=== PATIENT | female | born 1950 | race Hispanic/Latino ===

== ENCOUNTER 2020-12-28 11:14 | Observation (INO) | payer MEDICARE, SELFPAY ==
[2020-12-28] VITALS (16 sets, daily range): BP systolic 124–157; BP diastolic 56–80; PULSE 61–74; RESP 15–20; TEMP 36–36.5; O2SAT 94–100; BMI 33.7
--- NOTE | ~2020-12-28 | US_ITS ---
EXAMINATION: US thyroid EXAM DATE: 12/30/2020 09:18 INDICATION: Thyroid mass. TECHNIQUE: Multiple grayscale and Doppler images of the thyroid were obtained (by a technologist who performed the scan) and subsequently reviewed. Individual nodules and recommendations may be reporte d in accordance with TI-RADS system as designated by the 2017 ACR White Paper TI-RADS committee. The re is no prior study for comparison. FINDINGS: Right thyroid lobe measures 5.5 x 1.3 x 1.3 cm, the left measuring 3.8 x 1.2 x 1.3 cm. Relatively lolis ogeneous thyroid echogenicity. There is a right thyroid lobe inferior pole nodule measuring 1.6 x 1.2 x 1.1 cm, solid (2 points), is oechoic (1 point), wider than tall, smooth well defined margin, without echogenic foci, category TR3 for this nodule. IMPRESSION: Right thyroid lobe 1.6 cm TR 3 nodule; follow-up ultrasound at 1, 3, 5 years, assuming no growth on those exams. Reviewed, dictated and finalized at location A. IMPRESSION: Right thyroid lobe 1.6 cm TR 3 nodule; follow-up ultrasound at 1, 3 , 5 years, assuming no growth on those exams.
--- NOTE | ~2020-12-28 | XR_ITS ---
EXAMINATION: XR chest 2V DATE: 12/28/2020 13:35 INDICATION: Weakness. TECHNIQUE: Frontal and lateral views of the chest were obtained. COMPARISON: None. FINDINGS: There is mild elevation of left hemidiaphragm. No pneumonia, pleural effusion, or pneumotho rax. The heart size is normal. IMPRESSION: 1. No acute cardiopulmonary disease. Reviewed, dictated and finalized at location A.
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
--- NOTE | 2020-12-28 12:15 | ECG_ITS ---
Measurements Intervals [place] Rate: 57 P: 31 GA: 154 QRS: -8 QRSD: 80 T: -23 QT: 410 QTc: 402 Interpretive Statements SINUS BRADYCARDIA LEFT VENTRICULAR HYPERTROPHY BORDERLINE ST-T WAVE ABNORMALITY- ANTEROLAT/INF LEADS BORDERLINE ECG Electronically Signed On 12-28-2020 13:13:25 CDT by Kale Tapia D.O.
[2020-12-28 13:33] LABS: Basophils Percent Auto 0.5 % (0.2-1.2); Eosinophils Absolute Auto 0.1 K/mm3 (0-0.3); Eosinophils Percent Auto 0.9 % (0-4.4); Hematocrit 40.1 % (37.0-47.0); Hemoglobin 12.6 g/dL (12.0-15.0); Immature Granulocyte Absolute 0.02 K/mm3 (0.00-0.031); Immature Granulocyte Percent A 0.2 % (0-0.5); Lymphocytes Absolute Auto 1.72 K/mm3 (0.9-3.2); Lymphocytes Percent Auto 19.4 % (18.3-44.2); Mean Corpuscular HGB Conc 31.4 g/dl (32-36); Mean Corpuscular Volume 85.9 fl (80-100); Mean Platelet Volume 9.5 fl (7.4-10.4); Monocytes Absolute Auto 0.6 K/mm3 (0.1-0.6); Monocytes Percent Auto 6.5 % (2.6-8.5); Neutrophils Absolute Auto 6.4 K/mm3 (1.3-6.7); Neutrophils Percent Auto 72.5 % (45.5-73.1); Platelet Count Result 289 k/mm3 (150-375); Red Blood Count 4.67 M/mm3 (4.2-5.4); Red Cell Distribution Width 15.9 % (11.5-14.5); White Blood Count 8.9 K/mm3 (4.5-10.0)
[2020-12-28 14:15] LABS: Add Urine Microscopic? NO; Appearance Urine Clear (Clear); Bilirubin Urine Negative (Negative); Blood Urine Negative (Negative); Color Urine Yellow (Yellow); Glucose Urine UA Negative (Negative); Ketones Urine Negative (Negative); Leukocyte Esterase Ur Negative LEU/UL (Negative); Nitrate Urine Negative (Negative); Protein Urine Negative (Negative); Specific Grav Ur 1.015 (1.001-1.035); Urobilinogen Urine Negative mg/dL (<2.0)
[2020-12-28] MEDS: LACTATED RINGERS 1,000 ML 150 ML IV CONT (14:16)
[2020-12-28 14:26] LABS: Alanine Aminotransferase 50 U/L (4-35); Albumin Level 4.6 g/dL (3.5-5.1); Alkaline Phosphatase 102 U/L (38-126); Anion Gap 12 mmol/L (8-16); Aspartate Amino Transferase 71 U/L (14-36); Bilirubin,Total 1.2 mg/dL (0.2-1.3); Blood Urea Nitrogen 16 mg/dL (7-17); Carbon Dioxide 22 mmol/L (22-30); Chloride 107 mmol/L (98-107); Estimated CRCL calculation 44 ml/min; Estimated Glomerular Filt Rate 55; Glucose 101 mg/dL (65-110); Potassium 5.8 mmol/L (3.4-5.0); Sodium 141 mmol/L (137-145)
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
[2020-12-28] MEDS: SODIUM CHLORIDE 0.9% IV 1,000 ML 999 ML IV CONT (15:42)
[2020-12-28] MEDS: FUROSEMIDE INJ 40 MG/4 ML VIAL IV PUSH ×2 (15:42→21:23)
--- NOTE | 2020-12-28 19:20 | ADMGEN ---
This patient, Alyssa Cui, was admitted to Medical Room 242-01 at 1920. Patient/family oriented to hospital policies and general routines including ID bracelet, bed and alarms, visiting hours, pain management, procedures, bathroom and other care routines, personal items, smoking policy, room service/diet, and visiting hours. Information on how to activate the Rapid Response Team has been discussed. Patient/Family are encouraged to report perceived risks to care and to ask questions if they do not understand what they are told or what they should do.
--- NOTE | 2020-12-28 19:42 | PM.IMHP ---
H&P: HPI History of Present Illness Date/Time: 12/28/20 19:42 Chief Complaint: Weakness. Narrative: This is a 70-year-old female with past medical history significant for hypertension, generalized anxiety, depression, multiple strokes, former tobacco user, patient recently relocated here to live with her daughter, from [place]. Patient has had extensive workup in the past for generalized weakness and dysphonia including thyroid masses biopsy, however it was nondiagnostic due to not enough follicular cells present, patient was supposed to have a stress test but never got around to do it due to bad weather. Patient is brought to the emergency room today after she was not able to get up from sitting position just recently she had a urinary tract infection that was treated with antibiotics in the outpatient setting according to daughter who is at bedside. Patient denies any nausea ,vomiting ,has had some diarrhea, no abdominal pain, no weight loss, has had cold intolerance, has a weak voice now for roughly 2 years, has cough with swallowing however patient just had a video fluoroscopy swallow study that did not show laryngeal or tracheal aspiration, patient denies any fevers any rigors any chills but gets very short of breath with activity at exertion however patient has maintained her saturations at 90 a 99% on a 6 minute walk test prior to coming to [place] which was part of the workup, patient denies any chest pain any PND or orthopnea no leg swelling no syncope or near syncope no focal sensorimotor deficit. Preliminary workup has been essentially nonrevealing. Review of Systems Review of Systems: Weakness unable to get up from sitting position, cold intolerance, shortness of breath. Constitutional: Constitutional: Denies chills, Reports fatigue, Denies fever(s), Denies increased appetite, Denies night sweats, Denies poor appetite, Denies stops breathing during sleep, Reports weakness and Reports weight gain Eyes: Eyes: Denies change in vision ENT: Denies dysphagia, Denies vertigo, Denies dizziness, Denies nasal congestion, Denies nasal discharge, Denies nasal obstruction and Denies odynophagia Comments: Weak voice Cardiovascular: Cardiovascular: Denies edema, Denies irregular heart rhythm, Denies leg edema, Denies lightheadedness, Denies radiating jaw, neck or arm pain, Denies palpitations, Reports dyspnea on exertion and Denies orthopnea Respiratory: Respiratory: Denies change in phlegm color, Denies chest congestion, Denies cough, Denies excessive phlegm production and Reports dyspnea on exertion Gastrointestinal: Gastrointestinal: Denies abdominal pain, Denies dyspepsia, Reports diarrhea, Denies nausea and Denies vomiting Genitourinary: Genitourinary: Denies dysuria and Denies flank pain Musculoskeletal: Musculoskeletal: Denies arthralgias, Denies joint swelling and Reports muscle weakness Integumentary/Breasts: Skin/Breast: Denies change in hair, Denies dry skin, Denies rash and Denies skin swelling Neurologic: Denies vertigo, Denies dizziness, Denies syncope, Denies focal weakness, Denies restless legs, Denies Sensory deficit (Neuro), Denies paresthesias and Denies tremor(s) Psychiatric: Psychiatric: Reports behavioral changes Endocrine: Endocrine: Reports cold intolerance and Reports fatigue Hematologic/Lymphatic: Hematologic/Lymphatic: Reports as per HPI Allergic/Immunologic: Allergic/Immunologic: Reports as per HPI [facility] Family History Family History (Updated 12/28/20 @ 20:13 by Bhumi Redd RN) Mother Cerebrovascular accident Hypertension Sibling Congestive heart failure Hypertension Social History Social History Smoking packs per day: 1 Smoking cigarettes per day: 20.0 Years smoked: 20 Smoking pack-years: 20.00 Smoking status: Former smoker Tobacco type: cigarettes Smoking end date: 12/28/93 Additional smoking assessment comments: Smoked for 2
[2020-12-28 20:09] LABS: Anion Gap 12 mmol/L (8-16); Blood Urea Nitrogen 14 mg/dL (7-17); Calcium 9.7 mg/dL (8.4-10.2); Carbon Dioxide 21 mmol/L (22-30); Chloride 110 mmol/L (98-107); Estimated CRCL calculation 49 ml/min; Estimated Glomerular Filt Rate > 60; Glucose 128 mg/dL (65-110); Potassium 4.3 mmol/L (3.4-5.0); Sodium 143 mmol/L (137-145)
[2020-12-28] MEDS: SODIUM CHLORIDE 0.9% IV 1,000 ML 125 ML IV CONT (21:22)
[2020-12-28] MEDS: GLYCOPYRROLATE 1 MG TABLET PO (23:27)
[2020-12-28] MEDS: busPIRone HCL 5 MG TABLET PO (23:27)
[2020-12-28] MEDS: predniSONE 20 MG TABLET PO (23:28)
[2020-12-28] MEDS: OXYBUTYNIN CHLORIDE 5 MG TABLET PO (23:28)
[2020-12-29] VITALS (9 sets, daily range): BP systolic 122–134; BP diastolic 64–69; PULSE 66–94; RESP 16–18; TEMP 36.4–36.6; O2SAT 97–99
[2020-12-29] MEDS: SODIUM CHLORIDE 0.9% IV 1,000 ML 125 ML IV CONT (04:52)
[2020-12-29 06:15] LABS: Anion Gap 11 mmol/L (8-16); Blood Urea Nitrogen 15 mg/dL (7-17); Calcium 9.2 mg/dL (8.4-10.2); Carbon Dioxide 23 mmol/L (22-30); Chloride 107 mmol/L (98-107); Estimated CRCL calculation 55 ml/min; Estimated Glomerular Filt Rate > 60; Glucose 146 mg/dL (65-110); Sodium 141 mmol/L (137-145)
--- NOTE | 2020-12-29 08:12 | PM.IMPN ---
Progress Note: A&P Assessment and Plan (1) General weakness: Code(s): R53.1 - Weakness Status: Acute Assessment and Plan: Patient had extensive workup done in her place of residence in [place]. Patient was supposed to have a cardiac stress test done to assess for coronary artery disease but never got around to it due to bad weather and relocation to this area she is trying to establish care with primary care physician. Patient with thyroid mass which biopsy was nondiagnostic Suspect hypothyroidism/Myasthenia gravis/Eaton-Lambert syndrome. However patient with no ophthalmoplegia but weak voice. (2) Dysphonia: Code(s): R49.0 - Dysphonia Status: Acute Assessment and Plan: Patient carries a diagnosis of a right thyroid neck mass. She underwent 3 different attempts at biopsy at [facility]. unfortunately all 3 samplings were unsatisfactory. Dysphonia could be related to compression of the recurrent laryngeal nerve by this mass. Evaluation by ENT / Head and neck surgery. Patient had video fluoroscopy swallow study which showed delay initiation of swallowing but no laryngeal penetration or tracheal aspiration Patient has been placed on a level 6 diet However patient complains of cough when swallows Hematology-Oncology consult and ENT /regular neck surgery consult. (3) Thyroid mass of unclear etiology: Code(s): E07.89 - Other specified disorders of thyroid Status: Acute Assessment and Plan: Biopsy was nondiagnostic, Mainly due to an satisfactory sampling. Consider another attempt at biopsy/ fine-needle aspiration. TSH level was normal at 2.75. (4) Encephalomalacia on imaging study: Code(s): G93.89 - Other specified disorders of brain Status: Acute Assessment and Plan: Left frontal lobe encephalomalacia Patient has had multiple recurrent strokes in the past. Continue Plavix for prophylaxis. (5) Chronic arterial ischemic stroke: Code(s): I69.30 - Unspecified sequelae of cerebral infarction Status: Acute Assessment and Plan: Continue Plavix and aspirin Not on a statin (6) Hyperkalemia: Code(s): E87.5 - Hyperkalemia Status: Acute Assessment and Plan: Suspect secondary to losartan only slightly elevated above higher normal level (7) COPD with emphysema: Code(s): J43.9 - Emphysema, unspecified Status: Acute Assessment and Plan: Stable Not on home meds. Patient previously had a pulmonary stress test. Results from October 27 2019: 6 minute walk distance is 91.44 m with maximal severe dyspnea. During exercise there was no significant desaturation while breathing room air. Blood pressure increased significantly in her rate remains stable with walking. These may represent a hypertensive response to exercise. The patient reported no pulmonary symptoms during exercise. Severe exercise impairment is likely due to desaturation and cardiovascular causes. The patient did complete the study, walking to 296 seconds of the 360 seconds test. Based upon age and body mass index, exercise capacity is less than predicted. Subjective Date/time seen: 12/29/20 08:12 S: Patient is examined at the bedside. She complains about her voice. there is no other complaint. Review of Systems Constitutional: Constitutional: Denies chills, Reports fatigue, Denies fever(s), Denies increased appetite, Denies night sweats, Denies poor appetite, Denies stops breathing during sleep, Reports weakness and Reports weight gain Eyes: Eyes: Denies change in vision ENT: Denies dysphagia, Denies vertigo, Denies dizziness, Denies nasal congestion, Denies nasal discharge, Denies nasal obstruction and Denies odynophagia Cardiovascular: Cardiovascular: Denies syncope, Denies edema, Denies irregular heart rhythm, Denies leg edema, Denies lightheadedness, Denies radiating jaw, neck or arm pain, Denies palpitations, Reports dyspnea on exertion and D
[2020-12-29] MEDS: LOSARTAN POTASSIUM 25 MG TABLET PO (08:45)
[2020-12-29] MEDS: GLYCOPYRROLATE 1 MG TABLET PO (08:45)
[2020-12-29] MEDS: ASPIRIN 325 MG TABLET PO (08:45)
[2020-12-29] MEDS: SERTRALINE HCL 50 MG TABLET PO (08:45)
[2020-12-29] MEDS: CLOPIDOGREL BISULFATE 75 MG TABLET PO (08:45)
[2020-12-29] MEDS: predniSONE 20 MG TABLET PO (08:45)
[2020-12-29] MEDS: FUROSEMIDE INJ 40 MG/4 ML VIAL IV PUSH ×2 (08:52→20:15)
[2020-12-29] MEDS: MULTIVITAMINS /C LUTEIN (CENTRUM SILVER) TABLET *BKC 1 TAB PO (11:48)
[2020-12-29] MEDS: busPIRone HCL 5 MG TABLET PO (20:15)
[2020-12-29] MEDS: OXYBUTYNIN CHLORIDE 5 MG TABLET PO (20:15)
[2020-12-30] VITALS: PULSE 81
[2020-12-30 04:00] VITALS: PULSE 69
[2020-12-30 05:11] VITALS: BP 115/61; PULSE 62; RESP 16; TEMP 36.5; O2SAT 97
[2020-12-30 07:57] LABS: Anion Gap 12 mmol/L (8-16); Blood Urea Nitrogen 20 mg/dL (7-17); Carbon Dioxide 25 mmol/L (22-30); Chloride 103 mmol/L (98-107); Estimated CRCL calculation 45 ml/min; Estimated Glomerular Filt Rate 55; Glucose 119 mg/dL (65-110); Potassium 3.4 mmol/L (3.4-5.0); Sodium 140 mmol/L (137-145)
[2020-12-30 08:00] VITALS: PULSE 82
[2020-12-30 08:09] LABS: Basophils Percent Auto 0.3 % (0.2-1.2); Eosinophils Absolute Auto 0.1 K/mm3 (0-0.3); Eosinophils Percent Auto 0.9 % (0-4.4); Hematocrit 38.9 % (37.0-47.0); Hemoglobin 12.6 g/dL (12.0-15.0); Immature Granulocyte Absolute 0.02 K/mm3 (0.00-0.031); Immature Granulocyte Percent A 0.2 % (0-0.5); Lymphocytes Absolute Auto 3.81 K/mm3 (0.9-3.2); Lymphocytes Percent Auto 41.7 % (18.3-44.2); Mean Corpuscular HGB Conc 32.4 g/dl (32-36); Mean Corpuscular Hemoglobin 27.3 pg (26-34); Mean Corpuscular Volume 84.2 fl (80-100); Monocytes Absolute Auto 0.7 K/mm3 (0.1-0.6); Monocytes Percent Auto 7.9 % (2.6-8.5); Neutrophils Absolute Auto 4.5 K/mm3 (1.3-6.7); Platelet Count Result 275 k/mm3 (150-375); Red Blood Count 4.62 M/mm3 (4.2-5.4); Red Cell Distribution Width 15.5 % (11.5-14.5); White Blood Count 9.1 K/mm3 (4.5-10.0)
[2020-12-30] MEDS: CLOPIDOGREL BISULFATE 75 MG TABLET PO (09:01)
[2020-12-30] MEDS: LOSARTAN POTASSIUM 25 MG TABLET PO (09:01)
[2020-12-30] MEDS: MULTIVITAMINS /C LUTEIN (CENTRUM SILVER) TABLET *BKC 1 TAB PO (09:01)
[2020-12-30] MEDS: SERTRALINE HCL 50 MG TABLET PO (09:01)
[2020-12-30] MEDS: ASPIRIN 325 MG TABLET PO (09:01)
[2020-12-30] MEDS: predniSONE 20 MG TABLET PO (09:02)
[2020-12-30] MEDS: FUROSEMIDE INJ 40 MG/4 ML VIAL IV PUSH (09:02)
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
[2020-12-30] MEDS: MECLIZINE HCL 6.25 MG TABLET PO (11:44)
[2020-12-30 12:00] VITALS: PULSE 64
--- NOTE | 2020-12-30 13:17 | PM.DS ---
DS: Admitting Diagnosis Discharge Date 12/30/2020. Admitting Diagnosis weakness dysphonia DS: Discharge Diagnosis Discharge Diagnosis (1) Dizziness: Code(s): R42 - Dizziness and giddiness Status: Acute Assessment and Plan: We are starting the patient on meclizine as needed. (2) COPD with emphysema: Code(s): J43.9 - Emphysema, unspecified Status: Acute Assessment and Plan: Stable Not on home meds. Patient previously had a pulmonary stress test. Results from October 27 2019: 6 minute walk distance is 91.44 m with maximal severe dyspnea. During exercise there was no significant desaturation while breathing room air. Blood pressure increased significantly in her rate remains stable with walking. These may represent a hypertensive response to exercise. The patient reported no pulmonary symptoms during exercise. Severe exercise impairment is likely due to desaturation and cardiovascular causes. The patient did complete the study, walking to 296 seconds of the 360 seconds test. Based upon age and body mass index, exercise capacity is less than predicted. Pulmonary follow-up as an outpatient. Repeat physical therapy as an outpatient. (3) Thyroid mass of unclear etiology: Code(s): E07.89 - Other specified disorders of thyroid Status: Acute Assessment and Plan: Biopsy was nondiagnostic, Mainly due to an satisfactory sampling. Consider another attempt at biopsy/ fine-needle aspiration. TSH level was normal at 2.75. (4) Encephalomalacia on imaging study: Code(s): G93.89 - Other specified disorders of brain Status: Acute Assessment and Plan: Left frontal lobe encephalomalacia Patient has had multiple recurrent strokes in the past. Continue Plavix for prophylaxis. (5) Chronic arterial ischemic stroke: Code(s): I69.30 - Unspecified sequelae of cerebral infarction Status: Acute Assessment and Plan: Continue Plavix and aspirin Not on a statin (6) Dysphonia: Code(s): R49.0 - Dysphonia Status: Acute Assessment and Plan: Patient carries a diagnosis of a right thyroid neck mass. She underwent 3 different attempts at biopsy at [facility]. unfortunately all 3 samplings were unsatisfactory. Dysphonia could be related to compression of the recurrent laryngeal nerve by this mass. Evaluation by ENT / Head and neck surgery. Patient had video fluoroscopy swallow study which showed delay initiation of swallowing but no laryngeal penetration or tracheal aspiration Patient has been placed on a level 6 diet However patient complains of cough when swallows Hematology-Oncology consult and ENT /regular neck surgery consult. (7) General weakness: Code(s): R53.1 - Weakness Status: Acute Assessment and Plan: Patient had extensive workup done at her former place of residence in [place]. Patient was supposed to have a cardiac stress test done to assess for coronary artery disease but never got around to it due to bad weather and relocation to this area she is trying to establish care with primary care physician. Patient with thyroid mass which biopsy was nondiagnostic. Thyroid ultrasound performed today reveals right thyroid lobe inferior pole nodule measuring 1.6 x 1.2 x 1.1 cm, solid (2 points), isoechoic (1 point), wider than tall, smooth well defined margin, without echogenic foci, category TR3 for this nodule. Follow-up with Head and neck surgery as an outpatient. (8) Hyperkalemia: Onset Date: ~11/2020 Code(s): E87.5 - Hyperkalemia Status: Acute Assessment and Plan: Suspect secondary to losartan only slightly elevated above higher normal level. Completely resolved with a potassium of 3.4. (9) Paresthesia: Code(s): R20.2 - Paresthesia of skin Status: Acute DS: Summary Hospital Course Reason for hospitalization: weakness Hospital Course: Narrative: This is a 70-year-old
--- NOTE | 2021-01-18 16:04 | P.CONONC_ITS ---
HPI - Date of Consult Date/Time: 01/18/21 16:04 Requesting Physician: Yojana Raphael MD Primary Care Provider: PHYSICIAN NOT ON STAFF - Consult Narrative Reason for consult: Thyroid mass Narrative: Alyssa Cui is a 70 year old female Patient was discharged before consultation. Review of Systems - Neurologic Reports abnormal speech (No volume), Reports behavioral changes, Reports weakness, Denies vertigo, Denies syncope, Denies headache(s), Denies focal weakness, Denies numbness, Denies restless legs, Denies sensory deficit, Denies paresthesias, Denies tremor(s) [facility] Family History: Family History (Last Updated 12/28/20 @ 20:13 by Bhumi Redd RN) Mother Cerebrovascular accident Hypertension Sibling Congestive heart failure Hypertension - Social History Social History: Social History (Last Reviewed 12/28/20 @ 14:48 by Shady Zamudio MD) Alcohol Use: Alcohol intake: never Substance Use: Substance use: never Substance use type: does not use Others: Spiritual care concerns: No Smoking Status: Smoking status: Former smoker Tobacco type: cigarettes Smoking end date: 12/28/93 Smoking Pack-years: Smoking packs per day: 1 Smoking cigarettes per day: 20.0 Years smoked: 20 Smoking pack-years: 20.00 Comments: Additional smoking assessment comments: Smoked for 20 years Meds Home Medications Medication Instructions Recorded Confirmed Type Adults Multivitamin 1 tablet PO DAILY 12/28/20 12/28/20 History aspirin 325 mg PO DAILY 12/28/20 12/28/20 History buspirone 5 mg PO HS 12/28/20 12/28/20 History clopidogrel 75 mg PO DAILY 12/28/20 12/28/20 History losartan 25 mg PO DAILY 12/28/20 12/28/20 History oxybutynin chloride 5 mg PO HS 12/28/20 12/28/20 History sertraline 50 mg PO DAILY 12/28/20 12/28/20 History acetaminophen [Tylenol] 325 mg PO Q6H PRN #30 cap 12/30/20 Rx meclizine 25 mg PO BID PRN #30 tablet 12/30/20 Rx Allergies Allergy/AdvReac Type Severity Reaction Status Date / Time codeine Allergy Unknown Verified 12/28/20 11:34 morphine Allergy Unknown Verified 12/28/20 11:34 Results - Labs CBC & Chem 7: 12/30/20 07:37 12/30/20 07:37 Assessment and Plan - Additional Plan Patient was discharged before consultation.
== END 2020-12-30 13:45 | disposition home or self-care (01) ==
LOC: ANHED 16:55 → ANH2MED 17:57
PROVIDERS: Physician Assistant; Admitting Provider Family Medicine; Emergency Provider Emergency Medicine; Visit Provider Internal Medicine
DX: R53.1 Weakness (principal); R42 Dizziness and giddiness; R49.0 Dysphonia; J43.9 Emphysema, unspecified; E87.5 Hyperkalemia; E07.89 Other specified disorders of thyroid; G93.89 Other specified disorders of brain; I10 Essential (primary) hypertension; F41.8 Other specified anxiety disorders; Z86.73 Personal history of transient ischemic attack (TIA), and cerebral infarction without residual deficits; Z87.891 Personal history of nicotine dependence; Z79.02 Long term (current) use of antithrombotics/antiplatelets; Z79.82 Long term (current) use of aspirin; R20.2 Paresthesia of skin
CPT/HCPCS: 36415; 51701; 70450; 71046; 76536; 80048; 80053; 81003; 84443; 85025; 86850; 86900; 86901; 93005; 96361; 96374; 96376; 99285; A9270; G0378; J1940; J7030; J7120; J7512

== ENCOUNTER 2021-04-10 08:23 | Outpatient (CLI) | payer MEDICARE, SELFPAY ==
--- NOTE | ~2021-04-10 | NM_ITS ---
EXAMINATION: NM kareem stress w perfusion DATE: 04/10/2021 12:31 INDICATION: Shortness of breath TECHNIQUE: Rest images were obtained following intravenous administration of 10.5 mCi Tc99m tetrofosm in (Myoview). The patient was infused intravenously with Lexiscan (Regadenoson). Then, 30 mCi Tc99m t etrofosmin (Myoview) was administered intravenously, and stress images were obtained. Data was recons tructed into short axis and horizontal and vertical long axis SPECT images. Gated SPECT images were a lso obtained. COMPARISON: None. FINDINGS: There is no definite reversible or fixed perfusion abnormality to suggest ischemia or infar ction. There is normal left ventricular chamber size, wall motion and ejection fraction. Left ventr icular ejection fraction measures >70%. IMPRESSION: 1. Normal myocardial perfusion at rest and during stress. 2. Left ventricular ejection fraction measuring >70%. Reviewed, dictated and finalized at location A. [employer]ER
--- NOTE | 2021-04-10 09:16 | EST_ITS ---
Patient Info Name: Alyssa Cui Age: 70 years : 1950 Gender: Female Ht: 62 in Wt: 165 lbs BSA: 1.84 m2 HR: 66 bpm BP: 132 / 77 mmHg Heart Rhythm: Sinus Rhythm Exam Date: 04/10/2021 10:39 AM Exam Location: [facility] Stress Patient Status: Outpatient Admit Date: 04/10/2021 Staff Ordering Physician: Zenaida Oden MD Attending Provider: Zenaida Oden MD Exercise Technologist: Ramona Sims CT Exercise Physician: Kale Tapia DO Exam Type: CA stress kareem w NM Study Info Indications R06.02 - Shortness of breath A regadenoson stress test was performed. Summary 1. 1. Negative lexiscan stress test for ischemic ST changes by ECG criteria. 2. 2. Stable hemodynamics throughout the test. 3. 3. Nuclear scan to follow and will be reported separately. Please correlate with it. 4. 4. Patient informed of the above results. Protocol: Lexiscan Stress ECG Details Stage: REST Duration (min): 1 min : 36 sec HR (bpm): 65 SBP (mmHg): 132 DBP (mmHg): 77 Stage: REST Duration (min): 7 min : 53 sec HR (bpm): 64 SBP (mmHg): 132 DBP (mmHg): 77 Stage: STAGE 1 Duration (min): 0 min : 59 sec HR (bpm): 86 SBP (mmHg): 133 DBP (mmHg): 75 Stage: RECOVERY Duration (min): 1 min : 0 sec HR (bpm): 89 SBP (mmHg): 133 DBP (mmHg): 75 Stage: RECOVERY Duration (min): 2 min : 0 sec HR (bpm): 83 SBP (mmHg): 133 DBP (mmHg): 75 Stage: RECOVERY Duration (min): 3 min : 0 sec HR (bpm): 80 SBP (mmHg): 123 DBP (mmHg): 70 Rest HR: 64 bpm Peak HR: 90 bpm Rest Sys BP: 132 mmHg Peak Sys BP: 133 mmHg Max Pred HR: 150 bpm % Max Pred HR: 60 % Target HR: 128 bpm Max RPP: 11,970 bpm*mmHg Termination Reason: Completed protocol Cardiac Symptoms: None Total Time: 1 min : 0 sec Rest Dey BP: 77 mmHg Peak Dey BP: 75 mmHg Total Dose: 0.4 mg Resting ECG Sinus rhythm, borderline T wave abnormality in anterolat/inf leads. Stress ECG No ST changes. Arrhythmias None. Report Signatures
== END 2021-04-10 08:24 | disposition home or self-care (01) ==
PROVIDERS: PCP Family Medicine; Visit Provider Family Medicine
DX: R06.02 Shortness of breath (principal)
CPT/HCPCS: 78452; 93017; A9502; J2785

== ENCOUNTER 2021-05-31 08:01 | Outpatient (CLI) | payer MEDICARE, SELFPAY ==
--- NOTE | 2021-05-31 10:01 | PCRCNOTE ---
PT CAME IN FOR PULMONARY FUNCTION TEST BUT WAS UNABLE TO PERFORM TEST. WE WERE UNABLE TO GET AND ACCEPTABLE AND REPRODUCIBLE RESULTS. DR. HILLIARD'S OFFICE NOTIFIED.
== END 2021-05-31 08:02 | disposition home or self-care (01) ==
PROVIDERS: PCP Family Medicine; Visit Provider Family Medicine
DX: R06.02 Shortness of breath (principal); Z53.9 Procedure and treatment not carried out, unspecified reason
CPT/HCPCS: 99199

== ENCOUNTER 2021-08-22 10:08 | Outpatient (CLI) | payer MEDICARE, SELFPAY ==
--- NOTE | ~2021-08-22 | CT_ITS ---
EXAMINATION: CT diagnostic chest wo con DATE: 08/22/2021 11:26 INDICATION: Chest pain and shortness of breath TECHNIQUE: Computed tomography (CT) of the chest was performed without intravenous contrast. The dose -length product (DLP) was 76.73 mGy-cm. Automated exposure control and iterative reconstruction techn ique were employed. COMPARISON: None FINDINGS: There is a 3 mm nodule in the right middle lobe. There is mild atelectasis in the right mid dle lobe, lingula, and the lower lobes. No pleural effusion or pneumothorax. No pathologically enlarg ed thoracic lymph nodes are identified. The heart size is normal. There is mild thoracic spondylosis. IMPRESSION: 1. No CT correlate for the patient's symptoms. 2. 3 mm nodule of the right middle lobe. If the patient has no risk factors for malignancy, no furthe r follow up is required. If there are risk factors for malignancy (i.e., history of smoking, asbesto s or radiation exposure), consider followup CT in 12 months. Reviewed, dictated and finalized at location F. IMPRESSION: 1. No CT correlate for the patient's symptoms. 2. 3 mm nodule of the right middle lobe. If the patient has no risk factors for malignancy, no further follow up is required. If there are risk factors for m alignancy (i.e., history of smoking, asbestos or radiation exposure), consider followup CT in 12 months.
--- NOTE | 2021-08-22 10:29 | ECHO_ITS ---
Patient Info Name: Alyssa Cui Age: 70 years : 1950 Gender: Female Ht: 64 in Wt: 240 lbs BSA: 2.27 m2 HR: 73 bpm BP: 125 / 74 mmHg Technical Quality: Good Exam Date: 08/22/2021 10:46 AM Exam Location: [facility] Patient Status: Outpatient Admit Date: 08/22/2021 Staff Ordering Physician: Baldo Leong APRN Fabrication Inspector: Nevin Rosales RDCS Attending Provider: Baldo Leong APRN Referring Physician: Salo VELIZ; Exam Type: CA echo doppler color flow Study Info Indications R06.02 - Shortness of breath Complete two-dimensional, color flow and Doppler transthoracic echocardiogram is performed. Summary 1. Complete two-dimensional, color flow and Doppler transthoracic echocardiogram is performed. 2. Left ventricular chamber dimension is normal. 3. Left ventricular systolic function is normal, estimated at 60-65%. 4. There is mildly increased left ventricular wall thickness. 5. The left ventricular diastolic function is grade I diastolic dysfunction. 6. E/e' 11 is mildly elevated. 7. Global longitudinal strain is normal at -17.5%. 8. Left atrial chamber dimension is mildly enlarged. 9. There is mild aortic valve sclerosis. 10. There is mild mitral valve regurgitation. 11. No pulmonary hypertension, estimated pulmonary arterial systolic pressure is 33 mmHg. 12. There is trace pulmonic regurgitation. 13. There is trivial pericardial effusion. Left Ventricle E/e' 11 is mildly elevated. Global longitudinal strain is normal at -17.5%. Left ventricular chamber dimension is normal. Left ventricular systolic function is normal, estimated at 60-65%. There is mildly increased left ventricular wall thickness. The left ventricular diastolic function is grade I diastolic dysfunction. Right Ventricle Right ventricular chamber dimension is normal. Right ventricular systolic function is normal. Left Atria Left atrial chamber dimension is mildly enlarged. Right Atria Right atrial chamber dimension is normal. Aortic Valve The aortic valve is trileaflet. There is mild aortic valve sclerosis. There is no aortic valve stenosis. There is no aortic valve regurgitation. Pulmonic Valve There is trace pulmonic regurgitation. Mitral Valve There is no mitral valve stenosis. There is mild mitral valve regurgitation. Tricuspid Valve There is no tricuspid valve regurgitation. No pulmonary hypertension, estimated pulmonary arterial systolic pressure is 33 mmHg. Pericardium/Pleural There is trivial pericardial effusion. Inferior Vena Cava Normal inferior vena cava with >50% collapse upon inspiration consistent with normal right atrial pressure, 5 mmHg. Aorta The aortic root size at the sinus of Valsalva is normal. Left Ventricular Outflow Tract Name Value Normal LVOT 2D LVOT Diameter 1.9 cm LVOT Doppler LVOT Peak Gradient 5 mmHg LVOT Mean Gradient 3 mmHg LVOT VTI 24 cm LVOT VTI/AV VTI Ratio 0.8 LVOT Stroke Volume 69 ml
== END 2021-08-22 10:09 | disposition home or self-care (01) ==
LOC: ANHCARD 10:15
PROVIDERS: Visit Provider Nurse Practitioner Family
DX: R06.02 Shortness of breath (principal); R91.1 Solitary pulmonary nodule; I35.8 Other nonrheumatic aortic valve disorders; I34.0 Nonrheumatic mitral (valve) insufficiency
CPT/HCPCS: 71250; 93306

== ENCOUNTER 2021-09-23 14:32 | Outpatient (CLI) | payer MEDICARE, SELFPAY ==
--- NOTE | 2021-09-23 15:06 | PCRCNOTE ---
PT UNABLE TO COMPLETE MIP/MEP TESTING. AFTER A THREE ATTEMPTS, PT APPEARED TO BECOME SOB, WITH ANXIETY. SHE STOOD UP WHILE ATTEMPTING TO TEST, TACHYPNEIC AND ANXIOUS. TESTING WAS STOPPED. SON WAS WITH HER.
== END 2021-09-23 14:33 | disposition home or self-care (01) ==
PROVIDERS: PCP Family Medicine; Visit Provider Internal Medicine Pulmonary Disease
DX: R06.02 Shortness of breath (principal)
CPT/HCPCS: 99199

== ENCOUNTER 2021-11-19 13:26 | Inpatient (IN) | payer MEDICARE, SELFPAY ==
[2021-11-19] VITALS (11 sets, daily range): BP systolic 127–156; BP diastolic 64–80; PULSE 59–69; RESP 12–22; TEMP 35.7–36.8; O2SAT 95–100; BMI 33.3
--- NOTE | ~2021-11-19 | CT_ITS ---
EXAMINATION: CT brain wo con DATE: 11/19/2021 13:37 INDICATION: Right facial numbness, expressive aphasia TECHNIQUE: Computed tomography (CT) of the head was performed without intravenous contrast. The mA wa s adjusted according to patient size. Iterative reconstruction technique was employed. Exam dose: 60 5.33 mGy-cm total exam DLP. COMPARISON: 12/28/2020 CT brain FINDINGS: Chronic infarcts are noted in the left frontal and left parietal areas, stable since 2020. There is cerebral atherosclerosis nonspecific diminished attenuation of the cerebral white matter, li casper due to chronic small vessel ischemic changes. No intracranial mass lesion or hemorrhage or recent cerebrovascular accident is detected. No midline shift or mass effect. No subdural or epidural hematoma is detected. No fracture or bone destruction of the cranial vault. Included paranasal sinuses and mastoid air cell s are unremarkable. IMPRESSION: Old left frontal and parietal cerebrovascular accidents Cerebral atherosclerosis and chronic small vessel ischemic changes of the cerebral white matter No acute intracranial finding Reviewed, dictated and finalized at Location A. Reviewed, dictated and finalized at location B. IMPRESSION: Old left frontal and parietal cerebrovascular accidents Cerebral atherosclerosis and chronic small vessel ischemic changes of the cereb ral white matter No acute intracranial finding
--- NOTE | ~2021-11-19 | MR_ITS ---
EXAMINATION: MR brain/brain stem wo/w con DATE: 11/20/2021 08:03 INDICATION: Acute cerebrovascular accident. Right upper extremity numbness. TECHNIQUE: Magnetic resonance imaging (MRI) of the brain and brainstem was performed without and with 16 mL MultiHance intravenous contrast. COMPARISON: Head CT 11/19/2021 FINDINGS: There is no intracranial hemorrhage, acute infarction, or abnormal intracranial mass lesion . There are old infarcts in the cerebellum bilaterally. There is an old infarct in left parietal lobe . There is an old infarct in left frontal lobe. There are scattered areas of nonspecific increased T2 -weighted signal intensity in the cerebral white matter. The ventricles are normal in size. There are likely changes of ocular lens replacement surgeries. The paranasal sinuses are clear. The mastoid ai r cells are normal. IMPRESSION: 1. Old infarcts involving the cerebellum, left parietal lobe, and left frontal lobe. 2. Mild nonspecific cerebral white matter disease, which likely represents chronic small vessel ische jeremy disease. Reviewed, dictated and finalized at location A. IMPRESSION: 1. Old infarcts involving the cerebellum, left parietal lobe, and left frontal lobe. 2. Mild nonspecific cerebral white matter disease, which likely represents hogshead roller bre small vessel ischemic disease.
--- NOTE | ~2021-11-19 | XR_ITS ---
XR chest 1V portable 11/20/2021 12:21 Indication: Cough. Crackles left lung base. Procedure: AP portable chest Comparison: 11/19/2021 Findings: Left basilar infiltrates. Mildly elevated left diaphragm. Heart size normal. Right lung jeronimo ar. No pleural effusion or pneumothorax. No acute osseous abnormality. Impression: 1: Left basilar infiltrates may represent atelectasis or pneumonia. Reviewed, dictated and finalized at location A. Impression: 1: Left basilar infiltrates may represent atelectasis or pneumonia.
--- NOTE | ~2021-11-19 | XR_ITS ---
XR chest 1V portable 11/19/2021 14:06 Indication: CVA. Procedure: AP portable chest Comparison: 12/28/2020 Findings: Heart size normal. There is atherosclerosis and mild ectasia of aorta. No focal air space d isease, pulmonary edema, pleural effusion or suspected pneumothorax. Impression: 1: No acute cardiopulmonary disease. Reviewed, dictated and finalized at location A. Impression: 1: No acute cardiopulmonary disease.
--- NOTE | 2021-11-19 13:29 | ECG_ITS ---
Measurements Intervals [place] Rate: 66 P: 16 WA: 162 QRS: 67 QRSD: 81 T: 73 QT: 397 QTc: 418 Interpretive Statements SINUS RHYTHM NONSPECIFIC T-WAVE ABNORMALITY- ANTEROLAT/HIGH LAT LEADS BORDERLINE ECG COMPARED TO ECG 12/28/2020 13:11:49 HEART RATE HAS INCREASED Electronically Signed On 11-19-2021 14:22:55 CDT by Kale Tapia D.O.
[2021-11-19 13:56] LABS: Glucose Point of Care 103 mg/dl (65-105)
--- NOTE | 2021-11-19 14:03 | ED.NEUROSD ---
HPI - Neuro Symptoms/Deficit General Chief Complaint: Suspected CVA Stated Complaint: facial numbness Time Seen by Provider: 11/19/21 13:43 Source: patient and family Limitations: no limitations History of Present Illness HPI Narrative: 71 years old female brought to the emergency room by her son-in-law was telling me that patient started having numbness probably around 1030 this morning. And have trouble to move her right upper extremity. Patient have history of stroke with difficulty speaking and dementia. At home she uses a walker to manage her walking. The numbness of the right upper extremity may be a started at 1030 or probably a little bit before. Patient chronically unable to talk, whispering, difficult to understand and difficult to communicate. I saw the patient at 1:45 PM today currently patient on aspirin and Plavix and a lot of anxiety medication. History of headache over 1-1/2-month ago, recently started on antistress antianxiety medication. Currently complaining of headache which is probably worsened than before. The family denied that the patient have any fever, chills, nausea, vomiting, diarrhea, urinary symptoms, chest pain or shortness of breath. Related Data Home Medications Medication Instructions Recorded Confirmed multivit with minerals-iron 18 1 tablet PO DAILY 12/28/20 07/24/21 mg-folic ac 400 mcg-vit K 25 mcg tablet (Adults Multivitamin) sertraline 50 mg tablet 50 mg PO DAILY 12/28/20 07/24/21 clopidogrel 75 mg tablet 75 mg PO DAILY 03/07/21 07/24/21 losartan 25 mg tablet 25 mg PO DAILY 03/07/21 07/24/21 Allergies Allergy/AdvReac Type Severity Reaction Status Date / Time codeine Allergy Unknown Verified 11/19/21 14:00 morphine Allergy Unknown Verified 11/19/21 14:00 Review of Systems Review of Systems: All systems reviewed & are unremarkable except as noted in HPI and below PMFSH Past Medical History Medical History Allergies Chronic arterial ischemic stroke Dizziness Encephalomalacia on imaging study Headache Over 65 years old Stroke Family History Family History Mother Cerebrovascular accident Hypertension Sibling Congestive heart failure Hypertension Social History Social History Smoking packs per day: 1 Smoking cigarettes per day: 20.0 Years smoked: 20 Smoking pack-years: 20.00 Smoking status: Former smoker Tobacco type: cigarettes Second hand tobacco smoke exposure: Yes Smoking end date: 12/28/93 Additional smoking assessment comments: Smoked for 20 years Alcohol intake: current Alcohol use details: Socially Substance use: never Substance use type: does not use Spiritual care concerns: No Exam Narrative: General appearance: Well-developed, well-nourished Skin: Normal color Head: Normocephalic, nontraumatic Eyes: Clear conjunctiva ENT: Oropharynx normal, ears normal, nose normal Neck: Supple, nontender Chest and respiratory: Airway patent, no respiratory distress, no accessory muscle use Heart: Regular rate/rhythm Abdomen: Soft, nontender, no organomegaly, quiet bowel sounds Vascular: Normal peripheral pulses, normal capillary refill. Musculoskeletal: Unable to move right upper extremity and the right lower extremity Neurologic: Alert oriented to her name only Course Course Emergency Course: Patient is alert, oriented to her name only, told her son-in-law that she had numbness of the right upper extremity around 1030 this morning, the patient is not clear if the symptoms started at that time
[2021-11-19 14:09] LABS: Basophils Percent Auto 0.6 % (0.2-1.2); Eosinophils Absolute Auto 0.2 K/mm3 (0-0.3); Eosinophils Percent Auto 2.9 % (0-4.4); Hematocrit 39.1 % (37.0-47.0); Hemoglobin 12.7 g/dL (12.0-15.0); Immature Granulocyte Absolute 0.02 K/mm3 (0.00-0.031); Immature Granulocyte Percent A 0.3 % (0-0.5); Lymphocytes Absolute Auto 3.16 K/mm3 (0.9-3.2); Lymphocytes Percent Auto 44.3 % (18.3-44.2); Mean Corpuscular HGB Conc 32.5 g/dl (32-36); Mean Corpuscular Hemoglobin 27.3 pg (26-34); Mean Corpuscular Volume 83.9 fl (80-100); Monocytes Absolute Auto 0.7 K/mm3 (0.1-0.6); Monocytes Percent Auto 9.4 % (2.6-8.5); Neutrophils Percent Auto 42.5 % (45.5-73.1); Platelet Count Result 253 k/mm3 (150-375); Red Blood Count 4.66 M/mm3 (4.2-5.4); Red Cell Distribution Width 15.6 % (11.5-14.5); White Blood Count 7.1 K/mm3 (4.5-10.0)
[2021-11-19 14:18] LABS: Alanine Aminotransferase 107 U/L (6-35); Albumin Level 4.4 g/dL (3.5-5.1); Alkaline Phosphatase 101 U/L (38-126); Anion Gap 11 mmol/L (8-16); Aspartate Amino Transferase 97 U/L (14-36); Blood Urea Nitrogen 17 mg/dL (7-17); Calcium 9.6 mg/dL (8.4-10.2); Carbon Dioxide 21 mmol/L (22-30); Chloride 107 mmol/L (98-107); Estimated CRCL calculation 52 ml/min; Estimated Glomerular Filt Rate > 60; Glucose 99 mg/dL (65-110); Potassium 3.9 mmol/L (3.4-5.0); Sodium 139 mmol/L (137-145)
[2021-11-19 14:30] LABS: Troponin I < 0.012 ng/mL (0.000-0.034)
[2021-11-19 14:38] LABS: INR 1.1; Prothrombin Time 13.5 Seconds (11.1-14.7)
[2021-11-19 14:39] LABS: Partial Thromboplastin Time 27.3 SECONDS (22.3-36.8)
[2021-11-19 15:24] LABS: SARS-CoV-2 RNA PCR Negative
[2021-11-19] MEDS: MORPHINE SULFATE (*CRX) 4 MG/ML INJ IV PUSH (17:34)
[2021-11-19] MEDS: ONDANSETRON INJ 4 MG/2 ML VIAL 8 MG IV PUSH (17:34)
--- NOTE | 2021-11-19 17:47 | PC.NURSE ---
This patient, Alyssa Cui, was admitted to Medical Room 248-. Patient/family oriented to hospital policies and general routines including ID bracelet, bed and alarms, visiting hours, pain management, procedures, bathroom and other care routines, personal items, smoking policy, room service/diet, and visiting hours. Information on how to activate the Rapid Response Team has been discussed. Patient/Family are encouraged to report perceived risks to care and to ask questions if they do not understand what they are told or what they should do.
--- NOTE | 2021-11-19 20:00 | PM.IMHP ---
H&P: HPI History of Present Illness Date/Time: 11/19/21 20:00 Chief Complaint: Possible stroke. Narrative: This is a pleasant 71-year-old female with history of stroke, vascular dementia, and hypertension who presented to the emergency department from home for evaluation of possible stroke. The patient can provide some history however she is not the best historian given underlying dementia and thus some of the following history is provided by her family members. She does freely talk and interact with me however she speaks only in a whisper and 1 has to listen intently to hear what she is saying. She was reportedly in her usual state of health when she awoke this morning. At about 10:30 she ?felt off? with paresthesias and weakness in her right upper extremity. She was also complaining of a posterior headache at that time. Family members were concerned that she was perhaps having another stroke and she was brought in for evaluation. Her symptoms have since resolved and she reports being back to her usual state of health. CT of the brain did not show any acute findings. Due to her history I was asked to admit her overnight for further evaluation and brain MRI. At the time my evaluation she has no complaints and she is resting comfortably. She denies vertigo, focal weakness, paresthesias, weakness, visual changes, and dysphagia. Review of Systems Review of Systems: Twelve systems were reviewed. She denies falls. No syncope or near syncope. No recent cold or flu symptoms. She denies chest pain shortness a breath. She denies dysphagia. No nausea or vomiting. She has had some loose stools. No diarrhea. Except as documented, all other systems were reviewed and are negative. REPLACED BY [facility] Past Medical History Medical History (Updated 11/19/21 @ 19:46 by Cami Retana PA-C) Anxiety and depression Cerebrovascular accident Dysphonia Chronic, ongoing finding for years. Encephalomalacia on imaging study Hypertension Hypothyroidism Vascular dementia Surgical History Surgical History (Updated 11/19/21 @ 23:39 by Cami Retana PA-C) No history of previous surgery Family History Family History Mother Cerebrovascular accident Hypertension Sibling Congestive heart failure Hypertension Social History Social History (Updated 11/19/21 @ 23:40 by Cami Retana PA-C) Social History: Healthcare power of criminal attorney: Penelope Larson, daughter. Code status: Do not resuscitate. Smoking packs per day: 1 Smoking cigarettes per day: 20.0 Years smoked: 20 Smoking pack-years: 20.00 Smoking status: Former smoker Tobacco type: cigarettes Second hand tobacco smoke exposure: Yes Smoking end date: 12/28/93 Alcohol intake: former Alcohol use details: Drank socially. Substance use: never Substance use type: does not use Additional living arrangements comments: The patient lives with her family in [place]. She is originally from [facility]. Spiritual care concerns: No Meds Home Medications and Allergies Home Medications Medication Instructions Recorded Confirmed Type multivit with minerals-iron 18 1 tablet PO DAILY 12/28/20 11/19/21 History mg-folic ac 400 mcg-vit K 25 mcg tablet (Adults Multivitamin) sertraline 50 mg tablet 50 mg PO DAILY 12/28/20 11/19/21 History clopidogrel 75 mg tablet 75 mg PO DAILY 03/07/21 11/19/21 History losartan 25 mg tablet 25 mg PO DAILY 03/07/21 11/19/21 History cholecalciferol (vitamin D3) 1,250 1,250 mcg PO WEEKLY #12 caps 08/07/21 11/19/21 Rx mcg (50,000 unit) capsule levothyroxine 50 mcg tablet 50 mcg PO DAILY #90 tabs 08/07/21 11/19/21 Rx oxybutynin chloride 10 mg 10 mg PO .q hs #90 tabs 10/09/21 11/19/21 Rx tablet,extended release 24 hr buspirone 5 mg tablet See Rx Instructions .Route 10/24/21 11/19/21 Rx .COMPLEX #180 tabs Allergies Allergy/AdvReac Type Severity Reaction Status Date
[2021-11-19 20:06] LABS: Ammonia 10 umol/L (9-30)
[2021-11-19 21:30] LABS: Hepatitis B Surface Antigen Negative (Negative)
[2021-11-19 21:35] LABS: HAV RESULT Negative (Negative); Hepatitis B Core IgM Result Negative (Negative)
[2021-11-19 21:47] LABS: Hepatitis C Virus Antibody Negative (Negative)
[2021-11-20] VITALS: BP 121/70; PULSE 62; PULSE 65; RESP 18; TEMP 35.9; O2SAT 98
[2021-11-20 03:32] VITALS: BP 123/69; PULSE 63; RESP 18; TEMP 35.8; O2SAT 98
[2021-11-20 04:00] VITALS: PULSE 61
[2021-11-20 06:05] LABS: Alanine Aminotransferase 92 U/L (6-35); Albumin Level 3.5 g/dL (3.5-5.1); Alkaline Phosphatase 87 U/L (38-126); Anion Gap 10 mmol/L (8-16); Aspartate Amino Transferase 73 U/L (14-36); Bilirubin,Total 0.7 mg/dL (0.2-1.3); Blood Urea Nitrogen 17 mg/dL (7-17); Calcium 8.7 mg/dL (8.4-10.2); Carbon Dioxide 23 mmol/L (22-30); Chloride 106 mmol/L (98-107); Cholesterol 178 mg/dL (0-200); Estimated CRCL calculation 49 ml/min; Estimated Glomerular Filt Rate > 60; Glucose 96 mg/dL (65-110); HDL Direct 49 mg/dL; Sodium 139 mmol/L (137-145); Triglycerides 115 mg/dL (<150)
[2021-11-20 06:15] LABS: LDL Cholesterol Direct 81 mg/dL
[2021-11-20] MEDS: LEVOTHYROXINE SODIUM 50 MCG TABLET PO (06:25)
[2021-11-20 08:42] LABS: Free T4 Free Thyroxine Reflex 1.49 ng/dL (0.78-2.19)
[2021-11-20] MEDS: LOSARTAN POTASSIUM 25 MG TABLET PO (09:07)
[2021-11-20] MEDS: MULTIVITAMINS /C LUTEIN (CENTRUM SILVER) TABLET *BKC 1 TAB PO (09:07)
[2021-11-20] MEDS: CLOPIDOGREL BISULFATE 75 MG TABLET PO (09:07)
[2021-11-20] MEDS: SERTRALINE HCL 50 MG TABLET PO (09:07)
[2021-11-20 09:34] LABS: Total Triiodothyronine (T3) 1.06 NG/ML (0.97-1.69)
[2021-11-20 10:05] VITALS: BP 129/74; PULSE 74; RESP 16; TEMP 36.1; O2SAT 97
--- NOTE | 2021-11-20 11:18 | WPDNEURCNPN ---
Consult date: 11/20/21 Time Seen: 10:45 HPI: Alyssa Cui is a 71 year old female [facility] Past Medical History Medical History (Updated 11/19/21 @ 19:46 by Cami Retana PA-C) Anxiety and depression Cerebrovascular accident Dysphonia Chronic, ongoing finding for years. Encephalomalacia on imaging study Hypertension Hypothyroidism Vascular dementia Surgical History Surgical History (Updated 11/19/21 @ 23:39 by Cami Retana PA-C) No history of previous surgery Family History Family History Mother Cerebrovascular accident Hypertension Sibling Congestive heart failure Hypertension Social History Social History (Updated 11/19/21 @ 23:40 by Cami Retana PA-C) Social History: Healthcare power of health care attorney: Penelope Larson, daughter. Code status: Do not resuscitate. Smoking packs per day: 1 Smoking cigarettes per day: 20.0 Years smoked: 20 Smoking pack-years: 20.00 Smoking status: Former smoker Tobacco type: cigarettes Second hand tobacco smoke exposure: Yes Smoking end date: 12/28/93 Alcohol intake: former Alcohol use details: Drank socially. Substance use: never Substance use type: does not use Additional living arrangements comments: The patient lives with her family in [place]. She is originally from [facility]. Spiritual care concerns: No Meds Home Medications and Allergies Home Medications Medication Instructions Recorded Confirmed Type multivit with minerals-iron 18 1 tablet PO DAILY 12/28/20 11/19/21 History mg-folic ac 400 mcg-vit K 25 mcg tablet (Adults Multivitamin) sertraline 50 mg tablet 50 mg PO DAILY 12/28/20 11/19/21 History clopidogrel 75 mg tablet 75 mg PO DAILY 03/07/21 11/19/21 History losartan 25 mg tablet 25 mg PO DAILY 03/07/21 11/19/21 History cholecalciferol (vitamin D3) 1,250 1,250 mcg PO WEEKLY #12 caps 08/07/21 11/19/21 Rx mcg (50,000 unit) capsule levothyroxine 50 mcg tablet 50 mcg PO DAILY #90 tabs 08/07/21 11/19/21 Rx oxybutynin chloride 10 mg 10 mg PO .q hs #90 tabs 10/09/21 11/19/21 Rx tablet,extended release 24 hr buspirone 5 mg tablet See Rx Instructions .Route 10/24/21 11/19/21 Rx .COMPLEX #180 tabs Allergies Allergy/AdvReac Type Severity Reaction Status Date / Time codeine Allergy Unknown Verified 11/19/21 14:00 morphine Allergy Unknown Verified 11/19/21 14:00 Vital Signs Vital Signs - 24 hr 11/19/21 13:47 11/19/21 13:52 11/19/21 13:58 Temperature 36.8 C Pulse Rate 64 69 69 Respiratory Rate 18 12 Blood Pressure 149/76 H 156/72 H Pulse Oximetry 97 97 Oxygen Delivery Room Air 11/19/21 14:02 11/19/21 14:38 11/19/21 15:45 Temperature Pulse Rate 68 69 68 Respiratory Rate 18 14 19 Blood Pressure 133/70 127/64 131/76 Pulse Oximetry 100 97 Oxygen Delivery 11/19/21 17:23 11/19/21 17:39 11/19/21 17:55 Temperature 36.3 C L Pulse Rate 65 61 59 L Respiratory Rate 22 H 19 12 Blood Pressure 149/80 H 149/80 H 153/68 H Pulse Oximetry 99 98 95 Oxygen Delivery 11/19/21 18:44 11/19/21 19:40 11/19/21 20:00 Temperature 35.7 C L Pulse Rate 68 65 Respiratory Rate 16 Blood Pressure 133/67 Pulse Oximetry 95 Oxygen Delivery Room Air 11/20/21 00:00 11/20/21 03:32 11/19/21 20:00 Temperature 35.9 C L 35.8 C L Pulse Rate 62 63 68 Respiratory Rate 18 18 Blood Pressure 121/70 123/69 Pulse Oximetry 98 98 Oxygen Delivery 11/20/21 00:00 11/20/21 04:00 11/20/21 08:00 Temperature Pulse Rate 65 61 Respiratory Rate Blood Pressure Pulse Oximetry Oxygen Delivery Room Air Results Labs CBC & Chem 7: 11/19/21 13:54 11/20/21 04:58 Labs: Short CBC 11/19/21 Range/Units 13:54 WBC 7.1 (4.5-10.0) K/mm3 Hgb 12.7 (12.0-15.0) g/dL Hct 39.1 (37.0-47.0) % Plt Count 253 (150-375) k/mm3 [facility] 11/19/21 11/20/21 13:54 04
--- NOTE | 2021-11-20 11:20 | WPDNEURCNPN ---
Assessment and Plan Assessment and plan (1) Stroke-like symptoms: Code(s): R29.90 - Unspecified symptoms and signs involving the nervous system Status: Acute Assessment and Plan: history of old infarct on the left with speech dysfunction but recent complaints of new neurological deficit though the new MRI is only consistent with the old stroke, patient has underlying ongoing vascular dementia and could very well have had a new TIA in addition to the possibility of unwitnessed seizure she is already taking Plavix 75 mg daily in addition to antihypertensive medication and multiple anxiety relieving medication such as BuSpar will continue the treatment as such will obtain a routine EEG to rule out the possibility of unwitnessed seizure or if any paroxysmal discharges noted on the EEG otherwise min will be continued as such Consult date: 11/20/21 Time Seen: 10:30 Reason for consult: Stroke HPI: Alyssa Cui is a 71 year old female admitted to the hospital through the emergency room for the complaints of facial numbness and difficulties in moving her right upper extremity, she was brought to the emergency room by his son in law. Patient has ongoing history of underlying dementia using a walker to manage her walking at home, reportedly numbness of the right upper extremity started around 10:30 a.m. though she is chronically unable to communicate patient had been on aspirin and Plavix along with multiple medications for anxiety and has been complaining of headache over the last 6 weeks. In [place] she was started on anti anxiety medication just recently. Her medication as outpatient included sertraline 50 mg daily, clopidogrel 75 mg daily, and losartan 25 mg daily, she is allergic to codeine and morphine and has history of documented encephalomyelitis she on the previous imaging studies along with the history of the stroke, 20 years smoked former smoker and ended smoking on December 28, 1993 and drinks alcohol only socially on initial examination her vital signs were fairly normal except blood pressure 149/76, normal CBC, normal basic metabolic panel elevated hepatic enzymes of AST 97 ALT 107, initial CT scan of the head documented old left frontal and parietal cerebrovascular accident no evidence of bleed EKG revealed no evidence of atrial fibrillation and was admitted to the hospital with the stroke scale of 1, since admission has had the MRI of the brain which documented old infarct involving the cerebellum and left parietal lobe and left frontal lobe Review of Systems Review of Systems: All systems reviewed & are unremarkable except as noted in HPI and below [facility] Past Medical History Medical History (Updated 11/19/21 @ 19:46 by Cami Retana PA-C) Anxiety and depression Cerebrovascular accident Dysphonia Chronic, ongoing finding for years. Encephalomalacia on imaging study Hypertension Hypothyroidism Vascular dementia Surgical History Surgical History (Updated 11/19/21 @ 23:39 by Cami Retana PA-C) No history of previous surgery Family History Family History Mother Cerebrovascular accident Hypertension Sibling Congestive heart failure Hypertension Social History Social History (Updated 11/19/21 @ 23:40 by Cami Retana PA-C) Social History: Healthcare power of rural carrier associate: Penelope Larson, daughter. Code status: Do not resuscitate. Smoking packs per day: 1 Smoking cigarettes per day: 20.0 Years smoked: 20 Smoking pack-years: 20.00 Smoking status: Former smoker Tobacco type: cigarettes Second hand tobacco smoke exposure: Yes Smoking end date: 12/28/93 Alcohol intake: former Alcohol use details: Drank socially. Substance use: never Substance use type: does not use Additional living arrangements comments: The patient lives with her family in [place]. She is originally from [facility]. Spiritual care concerns:
[2021-11-20 12:00] VITALS: PULSE 77
[2021-11-20] MEDS: busPIRone HCL 5 MG TABLET BY MOUTH (12:20)
--- NOTE | 2021-11-20 12:31 | PM.DS ---
DS: Admitting Diagnosis Discharge Date November 20, 2021 Admitting Diagnosis Possible TIA DS: Discharge Diagnosis Discharge Diagnosis (1) Stroke-like symptoms: Code(s): R29.90 - Unspecified symptoms and signs involving the nervous system Status: Acute Assessment and Plan: TIA versus CVA. Workup negative, MRI today was read as negative as well. Follow-up with neurology (2) Elevated LFTs: Code(s): R79.89 - Other specified abnormal findings of blood chemistry Status: Acute Assessment and Plan: AST and ALT are elevated but it looks like this is a chronic findings. Abdominal exam is benign. (3) Hypothyroidism: Code(s): E03.9 - Hypothyroidism, unspecified Status: Acute Assessment and Plan: Continue levothyroxine and check TSH. (4) Hypertension: Code(s): I10 - Essential (primary) hypertension Status: Acute Assessment and Plan: Blood pressures were reviewed and they are stable. Continue antihypertensives and monitor. (5) Essential hypertension: Code(s): I10 - Essential (primary) hypertension Status: Acute (6) Anxiety and depression: Code(s): F41.9 - Anxiety disorder, unspecified; F32.A - Depression, unspecified Status: Acute (7) Vascular dementia: Code(s): F01.50 - Vascular dementia without behavioral disturbance Status: Acute DS: Summary Hospital Course Hospital Course: Patient came in with TIA/CVA like symptoms. Workup was unrevealing. Follow up with Neurology as needed. Neurology was consulted recommending current treatment Time Spent with Patient Time attestation: Total time spent providing and/or coordinating discharge services: Exam Narrative: General: Well-developed elderly female in the semi-Goddard position in bed in no distress. Weight: 79.9 kilograms. BMI: 33.3. HEENT: Normocephalic, atraumatic. PERRL, EOMI. Sclera anicteric. Oral mucosa moist. Edentulous. Neck: Supple. No obvious carotid bruits. Respiratory: Lungs are clear to auscultation bilaterally. Cardiovascular: Regular rate and rhythm with S1-S2. Gastrointestinal: Abdomen is soft, nontender, and nondistended with positive bowel sounds. Skin: Warm and dry. No rash or lesions on limited exam. Extremities: No cyanosis, clubbing, or edema. Radial and pedal pulses intact. Neurological: Alert and oriented to name only. Cranial nerves 2-12 are grossly intact. She speaks in a whisper however she is easily understood. Speech is not slurred. Perhaps some mild right-sided mouth droop though not significant. Tongue and uvula are midline. No pronator drift. Normal [id number]-th-aziv. She had difficulties understanding how to complete rapid alternating movements and heel to shepard. Gait not assessed. Neurovascularly intact. Psychiatric: Pleasantly confused and cooperative. She is in good spirits. DS: Data Data Completed and Pending Labs on day of discharge: Labs from last 24 hours 11/20/21 11/20/21 11/20/21 04:58 04:58 04:58 WBC RBC Hgb Hct MCV MCH MCHC RDW Plt Count MPV Immature Gran % (Auto) Neut % (Auto) Lymph % (Auto) Archer % (Auto) Eos % (Auto) Baso % (Auto) Lymph # (Auto) Archer # (Auto) Eos # (Auto) Baso # (Auto) Abs Immat Gran (auto) Absolute Neuts (auto) Absolute Nucleated RBC Nucleated RBC % PT INR APTT Sodium Potassium Chloride Carbon Dioxide Anion Gap BUN Creatinine Estim Creat Clear Calc Estimated GFR Glucose POC Capillary Glucose Calcium Total Bilirubin AST ALT Alkaline Phosphatase Ammonia Troponin I Total Protein Albumin Triglycerides Cholesterol LDL Cholesterol Direct HDL Direct Vitamin B12 Folate TSH (Reflex) 4.980 H Free T4 1.49 Total T3 1.06 Hepatitis A IgM Ab Hep Bs Antigen Hep B Core IgM Ab Hepa
[2021-11-20 13:46] LABS: Folic Acid 11.1 ng/mL (2.76->20)
[2021-11-20 14:05] VITALS: BP 124/63; PULSE 63; RESP 16; TEMP 36.5; O2SAT 99
== END 2021-11-20 16:58 | disposition home or self-care (01) | DRG 93 ==
LOC: ANHED 14:28 → ANH2MED 18:54
PROVIDERS: Physician Assistant; Admitting Provider Family Medicine; Emergency Provider Emergency Medicine; PCP Family Medicine; Visit Provider Chiropractor
DX: R29.818 Other symptoms and signs involving the nervous system (principal); R51.9 Headache, unspecified; I10 Essential (primary) hypertension; E03.9 Hypothyroidism, unspecified; G93.89 Other specified disorders of brain; R49.0 Dysphonia; R29.701 NIHSS score 1; R79.89 Other specified abnormal findings of blood chemistry; F01.50 Vascular dementia, unspecified severity, without behavioral disturbance, psychotic disturbance, mood disturbance, and anxiety; F41.9 Anxiety disorder, unspecified; F32.A Depression, unspecified; Z20.822 Contact with and (suspected) exposure to COVID-19; Z79.01 Long term (current) use of anticoagulants; Z87.891 Personal history of nicotine dependence; Z86.73 Personal history of transient ischemic attack (TIA), and cerebral infarction without residual deficits
CPT/HCPCS: 36415; 70450; 70553; 71045; 80053; 80061; 80074; 82140; 82607; 82746; 82948; 84439; 84443; 84480; 84484; 85025; 85610; 85730; 93005; 99285; A9270; A9577; C9803; J2270; J2405; U0003; U0005

== ENCOUNTER 2021-12-31 08:04 | Outpatient (CLI) | payer MEDICARE, SELFPAY ==
--- NOTE | ~2021-12-31 | US_ITS ---
US abdomen complete DATE: 12/31/2021 08:50 INDICATION: Abnormal serum enzyme levels TECHNIQUE: Real-time imaging and Doppler analysis of the abdomen COMPARISON: None FINDINGS: The pancreatic tail is obscured. The pancreas otherwise appears unremarkable. No pancreatic duct dilatation. No hepatic space-occupying mass lesion is detected. Normal hepatopedal portal venous flow direction. Common tail artifact possible gallbladder suggesting adenomyomatosis. No gallstones, gallbladder wall thickening or pericholecystic abnormal fluid collection is noted. Common bile duct measures 4 mm, no rmal. No renal mass lesion or hydronephrosis. Normal caliber of the abdominal aorta. Normal splenic size. IMPRESSION: Comment tail artifacts of the gallbladder suggesting adenomyomatosis Reviewed, dictated and finalized at Location [facility]. Reviewed, dictated and finalized at location A. IMPRESSION: Comment tail artifacts of the gallbladder suggesting adenomyomatosi s
--- NOTE | ~2021-12-31 | US_ITS ---
EXAMINATION: US carotid duplex BI DATE: 12/31/2021 08:51 INDICATION: Transient cerebral ischemic attack TECHNIQUE: Grayscale, color Doppler, and pulsed Doppler images of the cervical carotid arteries were obtained. The degree of vessel stenosis is placed in one of the following categories: normal, <50%, 5 0-69%, >=70% but less than near-occlusion, near-occlusion, or total occlusion. Note that percent sten osis relative to normal distal artery lumen diameter is indirectly measured from velocity measurement s as described by South, et al. Radiology 2003; 229:340-346. COMPARISON: None. FINDINGS: RIGHT: The right common carotid artery (CCA) peak systolic velocity (PSV) is 103 cm/s. The right internal ca rotid artery (ICA) PSV is 60 cm/s. The right ICA end-diastolic velocity (EDV) is 16 cm/s. The right I CA/CCA PSV ratio is 0.6. Grayscale and color Doppler images yield an estimate of <50% diameter reduct ion from plaque in the ICA. The external carotid artery (ECA) PSV is 76 cm/s. There is antegrade flow in the right vertebral artery. LEFT: The left CCA PSV is 88 cm/s. The left ICA PSV is 73 cm/s. The left ICA EDV is 17 cm/s. The left ICA/C CA PSV ratio is 0.8. Grayscale and color Doppler images yield an estimate of <50% diameter reduction from plaque in the ICA. The ECA PSV is 82 cm/s. There is antegrade flow in the left vertebral artery. IMPRESSION: 1. <50% stenosis in the right internal carotid artery. 2. <50% stenosis in the left internal carotid artery. Reviewed, dictated and finalized at location B.
== END 2021-12-31 08:05 | disposition home or self-care (01) ==
PROVIDERS: PCP Family Medicine; Visit Provider Physician Assistant
DX: R74.8 Abnormal levels of other serum enzymes (principal); I65.23 Occlusion and stenosis of bilateral carotid arteries
CPT/HCPCS: 76700; 93880

== ENCOUNTER → 2022-01-06 09:18 | Outpatient (CLI) | payer MEDICARE, SELFPAY ==
--- NOTE | ~2022-01-06 | US_ITS ---
EXAMINATION: US thyroid DATE: 01/06/2022 09:38 INDICATION: Disorder of thyroid, unspecified. TECHNIQUE: Multiple ultrasound images of the thyroid were obtained. COMPARISON: Thyroid ultrasound 12/30/2020 FINDINGS: The right thyroid lobe measures 3.8 x 1.5 x 1.1 cm. The left thyroid lobe measures 3.2 x 1.1 x 1.0 c m. In the right thyroid lobe, there is a 16 mm solid, isoechoic, taller than wide nodule with ill-de fined margin without echogenic foci (TI-RADS TR4). In the left thyroid lobe, there is a 3 mm nodule. IMPRESSION: 1. Right thyroid nodule, consider ultrasound-guided fine-needle aspiration. Reviewed, dictated and finalized at location A. VERY ENGINEER
== END ==
PROVIDERS: PCP Physician Assistant; Visit Provider Physician Assistant
DX: E07.9 Disorder of thyroid, unspecified (principal)
CPT/HCPCS: 76536

== ENCOUNTER 2022-03-20 12:19 | Outpatient (CLI) | payer MEDICARE, SELFPAY ==
--- NOTE | ~2022-03-20 | US_ITS ---
EXAMINATION: US FNA w image guidance DATE: 03/20/2022 13:31 INDICATION: Nontoxic single thyroid nodule TECHNIQUE: A time-out was performed to verify the patient's name, date of , and procedure to be performed . The procedure and its benefits and risks were discussed with the patient. Risks specifically discus sed included bleeding and infection. The patient understood the risks and agreed to proceed. The neck was prepped and draped in the usual sterile manner. 5 mL 1% lidocaine was used for local anesthesia . 6 passes were made with a 25G needle into the lesion. Appropriate needle location was documented with continuous sonographic guidance. A sterile bandage was applied. There were no immediate compli cations. FINDINGS: Grayscale ultrasound images demonstrate biopsy needles advanced into the previously noted isoechoic 1 .6 cm TI RADS 4 right thyroid nodule. IMPRESSION: 1. Successful ultrasound-guided fine needle aspiration of the 1.6 cm TI RADS 4 right thyroid nodule of concern. Reviewed, dictated and finalized at location A. ICAL BUSINESS ANALYST
== END 2022-03-20 12:20 | disposition home or self-care (01) ==
LOC: ANHIMG 12:20
PROVIDERS: PCP Family Medicine; Visit Provider Otolaryngology
DX: E04.1 Nontoxic single thyroid nodule (principal)
CPT/HCPCS: 10005; 88173; 88305

== ENCOUNTER 2022-10-31 15:46 | Outpatient (CLI) | payer MEDICARE, SELFPAY ==
[2022-10-31 18:32] LABS: D Dimer 1.17 ug/mL (<0.48)
== END 2022-10-31 15:47 | disposition home or self-care (01) ==
LOC: ANHGOSHLAB 15:47
PROVIDERS: PCP Family Medicine; Visit Provider Nurse Practitioner Family
DX: M79.669 Pain in unspecified lower leg (principal)
CPT/HCPCS: 36415; 85380

== ENCOUNTER → 2022-10-31 15:58 | Outpatient (CLI) | payer MEDICARE, SELFPAY ==
--- NOTE | ~2022-10-31 | XR_ITS ---
EXAMINATION: XR tibia fibula LT 2V DATE: 10/31/2022 16:41 INDICATION: Left lower leg pain. TECHNIQUE: 2 views of left tibia and fibula were obtained. COMPARISON: None. FINDINGS: Bone alignment is normal. No fracture. There is mild knee osteoarthritis. There is mild mid foot osteoarthritis. There is an enthesophyte at plantar aspect of calcaneal tuberosity. IMPRESSION: 1. Mild polyarticular osteoarthritis. Reviewed, dictated and finalized at location E.
== END ==
PROVIDERS: PCP Nurse Practitioner Family; Visit Provider Nurse Practitioner Family
DX: M17.12 Unilateral primary osteoarthritis, left knee (principal); M19.072 Primary osteoarthritis, left ankle and foot
CPT/HCPCS: 73590

== ENCOUNTER 2022-11-06 14:17 | Outpatient (CLI) | payer MEDICARE, SELFPAY ==
--- NOTE | ~2022-11-06 | US_ITS ---
EXAMINATION: US venous doppler [facility] DATE: 11/06/2022 15:25 INDICATION: Left lower limb pain. TECHNIQUE: Grayscale ultrasound images without and with compression and Doppler ultrasound images of the left lower extremity veins were obtained. COMPARISON: None. FINDINGS: The visualized portions of left common femoral vein, profunda (deep) femoral vein, femoral vein, popl iteal vein, peroneal veins, posterior tibial veins, and greater saphenous vein outflow are patent. IMPRESSION: 1. No deep venous thrombosis. Reviewed, dictated and finalized at location E.
== END 2022-11-06 14:18 | disposition home or self-care (01) ==
PROVIDERS: PCP Family Medicine; Visit Provider Nurse Practitioner Family
DX: M79.662 Pain in left lower leg (principal)
CPT/HCPCS: 93971

== ENCOUNTER 2022-12-03 12:46 | Outpatient (CLI) | payer MEDICARE, SELFPAY ==
[2022-12-03 19:17] LABS: Alanine Aminotransferase 30 U/L (6-35); Albumin Level 3.6 g/dL (3.5-5.1); Alkaline Phosphatase 83 U/L (38-126); Anion Gap 8 mmol/L (8-16); Aspartate Amino Transferase 62 U/L (14-36); Bilirubin,Total 0.8 mg/dL (0.2-1.3); Blood Urea Nitrogen 21 mg/dL (7-17); Calcium 9.9 mg/dL (8.4-10.2); Carbon Dioxide 25 mmol/L (22-30); Chloride 101 mmol/L (98-107); Estimated Glomerular Filt Rate 32; Glucose 112 mg/dL (65-110); Potassium 4.8 mmol/L (3.4-5.0); Sodium 134 mmol/L (137-145)
[2022-12-03 19:44] LABS: Basophils Percent Auto 0.2 % (0.2-1.2); Eosinophils Absolute Auto 0.1 K/mm3 (0-0.3); Eosinophils Percent Auto 0.8 % (0-4.4); Hematocrit 34.3 % (37.0-47.0); Hemoglobin 10.8 g/dL (12.0-15.0); Immature Granulocyte Absolute 0.06 K/mm3 (0.00-0.031); Immature Granulocyte Percent A 0.5 % (0-0.5); Lymphocytes Absolute Auto 2.05 K/mm3 (0.9-3.2); Lymphocytes Percent Auto 16.4 % (18.3-44.2); Mean Corpuscular HGB Conc 31.5 g/dl (32-36); Mean Corpuscular Volume 82.5 fl (80-100); Mean Platelet Volume 10.1 fl (7.4-10.4); Monocytes Absolute Auto 0.4 K/mm3 (0.1-0.6); Monocytes Percent Auto 2.8 % (2.6-8.5); Neutrophils Absolute Auto 9.9 K/mm3 (1.3-6.7); Neutrophils Percent Auto 79.3 % (45.5-73.1); Platelet Count Result 321 k/mm3 (150-375); Red Blood Count 4.16 M/mm3 (4.2-5.4); Red Cell Distribution Width 15.6 % (11.5-14.5); White Blood Count 12.5 K/mm3 (4.5-10.0)
== END 2022-12-03 12:47 | disposition home or self-care (01) ==
PROVIDERS: PCP Family Medicine; Visit Provider Family Medicine
DX: R55 Syncope and collapse (principal)
CPT/HCPCS: 36415; 80053; 85025

== ENCOUNTER 2022-12-05 13:18 | Emergency (ER) | payer MEDICARE, SELFPAY ==
[2022-12-05] VITALS (14 sets, daily range): BP systolic 109–143; BP diastolic 45–77; PULSE 68–84; RESP 15–30; TEMP 36.4; O2SAT 99–100
--- NOTE | ~2022-12-05 | CT_ITS ---
EXAMINATION: CT abdomen pelvis wo con DATE: 12/05/2022 14:09 INDICATION: Left flank pain TECHNIQUE: Computed tomography (CT) of the abdomen and pelvis was performed without intravenous contr ast. The dose-length product (DLP) was 607.33 mGy-cm. Automated exposure control and iterative recons truction technique were employed. COMPARISON: None FINDINGS: Minimal dependent atelectasis is present in the lung bases. The heart size is normal. There appears to be an old healed fracture of the left 12th rib. Respiratory motion artifact slightly limi ts evaluation of the upper abdomen. The liver, spleen, pancreas, gallbladder, and adrenal glands are normal. The kidneys are unremarkable. No stones are identified in the kidneys, ureters, or bladder. N o hydronephrosis or hydroureter. No pathologically enlarged abdominal or pelvic lymph nodes are ident ified. No free intraperitoneal gas or evidence of bowel obstruction. A moderate volume of colonic sto ol is present. There is mild lumbar spondylosis. Tubal ligation clips are noted. IMPRESSION: 1. No CT correlate for the patient's symptoms. 2. Constipation. Reviewed, dictated and finalized at location A.
[2022-12-05 14:05] LABS: Basophils Percent Auto 0.3 % (0.2-1.2); Eosinophils Absolute Auto 0.2 K/mm3 (0-0.3); Eosinophils Percent Auto 1.6 % (0-4.4); Hematocrit 33.8 % (37.0-47.0); Hemoglobin 10.7 g/dL (12.0-15.0); Immature Granulocyte Absolute 0.04 K/mm3 (0.00-0.031); Immature Granulocyte Percent A 0.4 % (0-0.5); Lymphocytes Absolute Auto 2.41 K/mm3 (0.9-3.2); Lymphocytes Percent Auto 22.9 % (18.3-44.2); Mean Corpuscular HGB Conc 31.7 g/dl (32-36); Mean Platelet Volume 9.3 fl (7.4-10.4); Monocytes Absolute Auto 0.3 K/mm3 (0.1-0.6); Monocytes Percent Auto 2.9 % (2.6-8.5); Neutrophils Absolute Auto 7.6 K/mm3 (1.3-6.7); Neutrophils Percent Auto 71.9 % (45.5-73.1); Platelet Count Result 286 k/mm3 (150-375); Red Blood Count 4.12 M/mm3 (4.2-5.4); Red Cell Distribution Width 15.6 % (11.5-14.5); White Blood Count 10.5 K/mm3 (4.5-10.0)
--- NOTE | 2022-12-05 14:10 | PC.NURSE ---
PT to CTA
[2022-12-05 14:20] LABS: Lactic Acid Reflex 1.2 mmol/L (0.7-2.0)
--- NOTE | 2022-12-05 14:21 | ED.FEMALEGU ---
HPI - Female Genitourinary General Chief complaint: Urogenital-Female Stated complaint: left side pain Time Seen by Provider: 12/05/22 13:37 History of Present Illness HPI Narrative: This is a 72-year-old female, with past history of hypothyroidism hypertension and CVA, who presents to the emergency department complaining of left abdominal and flank pain. This been going on for the past 3 to 4 days. She describes it as sharp, rated 10/10 and not radiating elsewhere. Is associated with nausea but no vomiting. She also complains of dysuria and passage of unusual objects in her urine. Related Data Home Medications Medication Instructions Recorded Confirmed sertraline 50 mg tablet 50 mg PO DAILY 12/28/20 12/03/22 diphenhydramine HCl 25 mg tablet 25 mg PO QHS PRN 05/08/22 12/03/22 (Benadryl Allergy) Allergies Allergy/AdvReac Type Severity Reaction Status Date / Time codeine Allergy Unknown Verified 12/05/22 14:41 morphine Allergy Unknown Verified 12/05/22 14:41 Review of Systems Review of Systems: CONSTITUTIONAL: Denies fever, chills, or sweats. CARDIOVASCULAR: Denies chest pain, palpitations, or edema. RESPIRATORY: Denies cough or dyspnea. GASTROINTESTINAL: Left upper quadrant abdominal pain, nausea denies vomiting, or diarrhea. GENITOURINARY: Dysuria denies hematuria. SKIN: Denies rash or itching. MUSCULOSKELETAL: Denies back pain, joint pain, or myalgia. NEUROLOGIC: Denies headache, numbness, dizziness, or weakness. PSYCHIATRIC: Denies anxiety or depression. [facility] Past Medical History Medical History Anxiety and depression Cerebrovascular accident Dysphonia Chronic, ongoing finding for years. ent visualized vocal cords/normal Encephalomalacia on imaging study Hypertension Hypothyroidism Vascular dementia Surgical History Surgical History No history of previous surgery Family History Family History Mother Cerebrovascular accident Hypertension Sibling Congestive heart failure Hypertension Social History Social History Social History: Healthcare power of corporate associate attorney: Penelope Larson, daughter. Code status: Do not resuscitate. Smoking packs per day: 1 Smoking cigarettes per day: 20.0 Years smoked: 20 Smoking pack-years: 20.00 Smoking status: Former smoker Tobacco type: cigarettes Second hand tobacco smoke exposure: Yes Smoking end date: 12/28/93 Alcohol intake: former Alcohol use details: Drank socially. Substance use: never Substance use type: does not use Lack of Transportation: No Lack of Food: Never True Current Housing: I Have Housing Concerned About Future Housing: No Difficulty Paying Gas/Electric Bills: No Difficulty Paying for Meds: No Currently Unemployed: No Education: Master's Degree or Higher Difficulty w/ Childcare or Family Care: No Additional living arrangements comments: The patient lives with her family in [place]. She is originally from [facility]. Spiritual care concerns: No Exam Narrative: GENERAL: Well-developed, well-nourished, and in no acute distress. HEAD: Normocephalic, atraumatic. EYES: PERRLA and EOMI. ENT: Nares clear, no rhinorrhea or epistaxis. Mucous membranes moist. Oropharynx without tonsillar hypertrophy exudate or other lesions. CHEST: Clear to auscultation. No respiratory distress. No wheezes rales or rhonchi HEART: Regular rate and rhythm. No murmur heard. Normal peripheral pulses. ABDOMEN: Soft, mild left upper quadrant tenderness to palpation, without rebound or guarding, nondistended, normal active bowel sounds. Left CVA tenderness to palpation, no right CVA tenderness EXTREMITIES: Normal range of motion. No edema. SKIN: Warm, dry, no rash. NEURO: Alert and oriented
[2022-12-05 14:22] LABS: Alanine Aminotransferase 36 U/L (6-35); Albumin Level 3.6 g/dL (3.5-5.1); Alkaline Phosphatase 85 U/L (38-126); Anion Gap 8 mmol/L (8-16); Aspartate Amino Transferase 62 U/L (14-36); Bilirubin,Total 0.7 mg/dL (0.2-1.3); Blood Urea Nitrogen 17 mg/dL (7-17); Calcium 9.5 mg/dL (8.4-10.2); Carbon Dioxide 22 mmol/L (22-30); Chloride 102 mmol/L (98-107); Estimated CRCL calculation 37 ml/min; Estimated Glomerular Filt Rate 44; Glucose 97 mg/dL (65-110); Lipase 115 U/L (23-300); Potassium 4.6 mmol/L (3.4-5.0); Sodium 132 mmol/L (137-145)
[2022-12-05] MEDS: SODIUM CHLORIDE 0.9% IV 1,000 ML 999 ML IV CONT ×2 (14:37→16:27)
[2022-12-05] MEDS: ONDANSETRON INJ 4 MG/2 ML VIAL IV PUSH (14:38)
[2022-12-05] MEDS: fentaNYL CITRATE INJ (*CRX) 100 MCG/2 ML VIAL 50 MCG IV PUSH (14:40)
[2022-12-05 17:08] LABS: Appearance Urine Turbid (Clear); Bacteria Urine 4+ /hpf; Bilirubin Urine Negative (Negative); Blood Urine 1+ (Negative); Color Urine Yellow (Yellow); Glucose Urine UA Negative (Negative); Ketones Urine Negative (Negative); Leukocyte Esterase Ur 3+ LEU/UL (Negative); Nitrate Urine Positive (Negative); Protein Urine 1+ mg/dL (Negative); RBC Urine 0-2 /hpf (0-2); Specific Grav Ur 1.014 (1.001-1.035); Squamous Epithelial Cell Urine None seen /hpf (Few); Urobilinogen Urine 0.2 mg/dL (<2.0); WBC Urine >100 /hpf
[2022-12-05 17:10] LABS: Add Urine Microscopic? YES
[2022-12-05] MEDS: ACETAMINOPHEN 500 MG TABLET 1000 MG PO (18:29)
[2022-12-05] MEDS: traMADol HCL (*CRX) 50 MG TABLET PO (18:30)
[2022-12-05] MEDS: CEPHALEXIN 500 MG CAPSULE PO (18:30)
== END 2022-12-05 19:06 | disposition home or self-care (01) ==
PROVIDERS: Emergency Provider Preventive Medicine Aerospace Medicine; PCP Family Medicine
DX: N10 Acute pyelonephritis (principal); E03.9 Hypothyroidism, unspecified; I10 Essential (primary) hypertension; F01.50 Vascular dementia, unspecified severity, without behavioral disturbance, psychotic disturbance, mood disturbance, and anxiety; R49.0 Dysphonia; F41.9 Anxiety disorder, unspecified; F32.A Depression, unspecified; Z66 Do not resuscitate; Z86.73 Personal history of transient ischemic attack (TIA), and cerebral infarction without residual deficits; Z87.891 Personal history of nicotine dependence
CPT/HCPCS: 36415; 74176; 80053; 81001; 83605; 83690; 85025; 87077; 87086; 87186; 96361; 96374; 96375; 99284; A9270; J2405; J3010; J7030

== ENCOUNTER 2023-01-11 16:58 | Emergency (ER) | payer MEDICARE, SELFPAY ==
--- NOTE | ~2023-01-11 | CT_ITS ---
EXAMINATION: CT abdomen pelvis w con DATE: 01/11/2023 19:26 INDICATION: diarrhea x2.5mos, weak, UTI TECHNIQUE: Computed tomography (CT) of the abdomen and pelvis was performed with 100 mL Omnipaque-350 intravenous contrast. Automated exposure control and iterative reconstruction technique were employe d. The dose-length product was 428.88 mGy-cm. COMPARISON: 12/05/2022. FINDINGS: Lower thorax: Peripheral and basal ground glass opacities and consolidation, with peripheral reticula tion and bronchiectasis. Liver: Normal. Biliary/Gallbladder: Gallbladder is normal. No bile duct dilation. Pancreas: No mass or duct dilation. Spleen: Normal. Adrenals:No mass. Kidneys: No suspicious mass, obstructing stone, or hydronephrosis. Simple right upper pole cyst. Bila teral cortical scarring. GI tract: Moderate distal esophageal and gastric wall edema. No small or large bowel dilation. Normal appendix. Mesentery/Peritoneum: No ascites, mass, or free air. Retroperitoneum: No mass. Atherosclerotic abdominal aortic and/or arterial calcifications. Pelvis: Moderate urinary bladder wall edema. Normal uterus. Soft Tissues: Soft tissues and body wall unremarkable. Bones: No acute osseous finding. IMPRESSION: Changes in the lung bases may represent pulmonary edema and/or chronic interstitial lung disease. Moderate esophagitis/gastritis. Likely cystitis. Reviewed, dictated and finalized at location [facility] IMPRESSION: Changes in the lung bases may represent pulmonary edema and/or chronic intersti tial lung disease. Moderate esophagitis/gastritis. Likely cystitis.
[2023-01-11 17:06] VITALS: BP 127/62; PULSE 78; RESP 24; TEMP 36.6; O2SAT 100
[2023-01-11 17:32] LABS: Basophils Percent Auto 0.4 % (0.2-1.2); Eosinophils Absolute Auto 0.4 K/mm3 (0-0.3); Eosinophils Percent Auto 4.8 % (0-4.4); Hematocrit 34.2 % (37.0-47.0); Hemoglobin 10.7 g/dL (12.0-15.0); Immature Granulocyte Absolute 0.03 K/mm3 (0.00-0.031); Immature Granulocyte Percent A 0.3 % (0-0.5); Lymphocytes Absolute Auto 2.82 K/mm3 (0.9-3.2); Lymphocytes Percent Auto 31.6 % (18.3-44.2); Mean Corpuscular HGB Conc 31.3 g/dl (32-36); Mean Corpuscular Volume 79.9 fl (80-100); Mean Platelet Volume 9.6 fl (7.4-10.4); Monocytes Absolute Auto 0.3 K/mm3 (0.1-0.6); Monocytes Percent Auto 3.4 % (2.6-8.5); Neutrophils Absolute Auto 5.3 K/mm3 (1.3-6.7); Neutrophils Percent Auto 59.5 % (45.5-73.1); Platelet Count Result 367 k/mm3 (150-375); Red Blood Count 4.28 M/mm3 (4.2-5.4); Red Cell Distribution Width 17.6 % (11.5-14.5); White Blood Count 8.9 K/mm3 (4.5-10.0)
--- NOTE | 2023-01-11 17:34 | ED.NAVMDI ---
HPI - Nausea/Vomiting/Diarrhea General Chief complaint: Nausea/Vomiting/Diarrhea Stated complaint: diarrhea Time Seen by Provider: 01/11/23 17:03 Source: patient and family Mode of arrival: ambulatory Limitations: no limitations and language barrier History of Present Illness HPI Narrative: Patient is a 72-year-old female who presents to the ED with report of diarrhea. Daughter at bedside assisted in providing information. Patient is primarily Cymro-speaking. Daughter felt comfortable translating. She reports patient has had intermittent diarrhea for the last 2 and half months. She was evaluated by her primary care doctor and tested negative for C diff in November. They have been trying Imodium without relief. The daughter brought the patient to the ED today as she reports patient has had decreased p.o. intake, refusing to drink fluids, stated she just wanted to today. Patient has been weak, lethargic, dehydrated. She denies any abdominal pain currently. Denies nausea, vomiting, fevers. Denies rectal bleeding or melena. Related Data Home Medications Medication Instructions Recorded Confirmed sertraline 50 mg tablet 50 mg PO DAILY 12/28/20 01/05/23 diphenhydramine HCl 25 mg tablet 25 mg PO QHS PRN 05/08/22 01/05/23 (Benadryl Allergy) aspirin 325 mg tablet,delayed 325 mg PO DAILY 01/02/23 01/05/23 release Allergies Allergy/AdvReac Type Severity Reaction Status Date / Time codeine Allergy Nausea and Verified 01/11/23 17:29 Vomiting morphine Allergy Nausea and Verified 01/11/23 17:29 Vomiting Review of Systems Review of Systems: CONSTITUTIONAL: Denies fever, chills, or sweats. CARDIOVASCULAR: Denies chest pain. RESPIRATORY: Denies dyspnea. GASTROINTESTINAL: See HPI. GENITOURINARY: Denies dysuria or hematuria. MUSCULOSKELETAL: Denies back pain, joint pain, or myalgia. NEUROLOGIC: See HPI. All systems reviewed & are unremarkable except as noted in HPI and below PMFSH Past Medical History Medical History Anxiety and depression Cerebrovascular accident Dysphonia Chronic, ongoing finding for years. ent visualized vocal cords/normal Encephalomalacia on imaging study Hypertension Hypothyroidism Vascular dementia Surgical History Surgical History No history of previous surgery Family History Family History Mother Cerebrovascular accident Hypertension Sibling Congestive heart failure Hypertension Social History Social History Social History: Healthcare power of immigration attorney: Penelope Larson, daughter. Code status: Do not resuscitate. Smoking packs per day: 1 Smoking cigarettes per day: 20.0 Years smoked: 20 Smoking pack-years: 20.00 Smoking status: Former smoker Tobacco type: cigarettes Second hand tobacco smoke exposure: Yes Smoking end date: 12/28/93 Alcohol intake: former Alcohol use details: Drank socially. Substance use: never Substance use type: does not use Lack of Transportation: No Lack of Food: Never True Current Housing: I Have Housing Concerned About Future Housing: No Difficulty Paying Gas/Electric Bills: No Difficulty Paying for Meds: No Currently Unemployed: No Education: Master's Degree or Higher Difficulty w/ Childcare or Family Care: No Additional living arrangements comments: The patient lives with her family in [place]. She is originally from [facility]. Spiritual care concerns: No Exam Narrative: GENERAL: Elderly and somewhat frail appearing, well-nourished, non-toxic, in no acute distress. HEAD: Normocephalic, atraumatic. ENT: Edentulous. MMs dry. NECK: Supple. No adenopathy, no masses. RESPIRATORY: Airway patent, respirations nonlabored. Clear to auscul
[2023-01-11] MEDS: SODIUM CHLORIDE 0.9% IV 1,000 ML 999 ML IV CONT ×2 (17:47→19:05)
[2023-01-11 18:10] LABS: Alanine Aminotransferase 30 U/L (6-35); Albumin Level 3.3 g/dL (3.5-5.1); Alkaline Phosphatase 75 U/L (38-126); Anion Gap 7 mmol/L (8-16); Aspartate Amino Transferase 61 U/L (14-36); Bilirubin,Total 0.7 mg/dL (0.2-1.3); Blood Urea Nitrogen 11 mg/dL (7-17); Calcium 9.5 mg/dL (8.4-10.2); Carbon Dioxide 24 mmol/L (22-30); Chloride 105 mmol/L (98-107); Estimated CRCL calculation 46 ml/min; Estimated Glomerular Filt Rate > 60; Glucose 87 mg/dL (65-110); Lipase 104 U/L (23-300); Magnesium 1.8 mg/dL (1.6-2.3); Potassium 4.2 mmol/L (3.4-5.0); Sodium 136 mmol/L (137-145)
[2023-01-11 18:34] LABS: Influenza A QL RT-PCR Negative (Negative); Influenza B QL RT-PCR Negative (Negative); SARS-CoV-2 RNA PCR Negative (Negative)
[2023-01-11 18:49] LABS: Appearance Urine Cloudy (Clear); Bacteria Urine 4+ /hpf; Bilirubin Urine Negative (Negative); Blood Urine Trace (Negative); Color Urine Yellow (Yellow); Glucose Urine UA Negative (Negative); Ketones Urine Negative (Negative); Leukocyte Esterase Ur 2+ LEU/UL (Negative); Need Manual Microscopic Reviewed; Nitrate Urine Positive (Negative); Non Pathogenic Casts 0-2; Protein Urine Trace mg/dL (Negative); RBC Urine 0-2 /hpf (0-2); Specific Grav Ur 1.015 (1.001-1.035); Squamous Epithelial Cell Urine None seen /hpf (Few); Urobilinogen Urine 0.2 mg/dL (<2.0); WBC Urine 21-50 /hpf; pH Urine 5.5 (5.0-9.0)
[2023-01-11 18:56] LABS: Add Urine Microscopic? YES
[2023-01-11 19:07] VITALS: BP 134/67; PULSE 77; RESP 18; O2SAT 99
[2023-01-11 19:19] VITALS: BP 135/78; PULSE 76; RESP 16; TEMP 36.4; O2SAT 98
--- NOTE | 2023-01-11 19:19 | PC.NURSE ---
Report received from COLETTE Solano
[2023-01-11 21:02] VITALS: BP 143/71; PULSE 89; RESP 24; O2SAT 94
== END 2023-01-11 21:35 | disposition home or self-care (01) ==
PROVIDERS: Emergency Provider Physician Assistant; PCP Family Medicine
DX: N39.0 Urinary tract infection, site not specified (principal); E86.0 Dehydration; R19.7 Diarrhea, unspecified; Z20.822 Contact with and (suspected) exposure to COVID-19; F01.50 Vascular dementia, unspecified severity, without behavioral disturbance, psychotic disturbance, mood disturbance, and anxiety; I10 Essential (primary) hypertension; E03.9 Hypothyroidism, unspecified; F41.9 Anxiety disorder, unspecified; F32.A Depression, unspecified; Z66 Do not resuscitate; Z79.82 Long term (current) use of aspirin; K29.70 Gastritis, unspecified, without bleeding; K20.90 Esophagitis, unspecified without bleeding
CPT/HCPCS: 36415; 74177; 80053; 81001; 83690; 83735; 85025; 87077; 87086; 87186; 87636; 96361; 96365; 99284; J0696; J7030; Q9967